=== PATIENT | male | born 1960 | race Caucasian/White ===

== ENCOUNTER 2019-05-01 15:37 | Inpatient (IN) ==
[2019-05-01] MEDS ORDERED: DILAUDID IV ONE ×2 (16:09→19:49)
--- NOTE | 2019-05-01 16:58 | Diag Imaging Result Doc PS360 ---
EXAM: CT ABDOMEN/PELVIS W/O CONTRAST INDICATION: ABD PAIN, ABD DISTENSION, HX OF CA ESOPHAGUS TECHNIQUE: This exam was performed using automated exposure control, adjustment of mA or kV according to patient size, and/or use of iterative reconstruction technique. COMPARISON: None. FINDINGS: There is a moderate-sized right pleural effusion and adjacent atelectasis and/or infiltrate. A component of infection at the right lung base is also possible. There is a pleural-based nodularity mainly on the right including nodularity along the minor fissure. There are also a few parenchymal lung nodules on the left with the largest in the left lower lobe on image six of series 4 measuring up to 9 mm. These bilateral nodules are nonspecific. Metastatic disease cannot be excluded. An esophageal stent is in place. It is partially imaged. The distal tip is in the expected position in the stomach. There is large volume ascites. There is vague omental thickening mainly at the left side of the abdomen and midline. It is suspicious for malignant omental caking. Further evaluation is limited with no IV contrast. There is a tiny hypodense focus involving the right hepatic lobe on image 32 of series 3 that is too small to characterize, possibly a tiny cyst. The gallbladder, spleen, and pancreas are grossly unremarkable as imaged with unenhanced CT. There are a couple of small nonobstructing intrarenal stones bilaterally. The urinary bladder is difficult to see with the surrounding ascites and no contrast. There is moderate gaseous distention of the ascending and transverse colon. No definite obstructive bowel pattern is identified. The small bowel is nondistended. No local bony metastatic disease is identified. IMPRESSION: 1.Large volume ascites. 2.Omental thickening that is suspicious for malignant omental caking. 3.At least moderate gaseous distention of the ascending and transverse colon. No definite obstructive pattern. 4.Moderate-sized right pleural effusion and right basilar atelectasis. Superimposed pneumonia at the right lung base is not excluded. 5.Esophageal stent in the expected position. 6.Multiple basilar lung nodules bilaterally, many of which are pleural-based on the right. Metastatic lesions cannot be excluded. 7.Other incidental/nonacute findings detailed above. Electronically signed by Timmy Hickey 05/01/2019 4:55 PM
[2019-05-01 18:07] LABS: BASO# 0.02 X1000 (0.0-0.2); BASO% 0.2 % (0.0-0.8); EOS# 0.02 X1000 (0.0-0.7); EOS% 0.2 % (0.0-10.0); HEMATOCRIT 25.7 % (42.0-52.0); HEMOGLOBIN 8.3 g/dL (14.0-18.0); IMM GRAN# 0.04 X1000 (0.0-0.04); IMM GRAN% 0.4 % (0.0-0.5); LYMPH# 2.41 X1000 (1.2-3.4); LYMPH% 24.1 % (20.5-51.1); MCH 29.2 PG (27-31); MCHC 32.3 g/dL (33-37); MCV 90.5 FL (81-99); MPV 8.8 FL (7.4-10.4); NEUT# 6.73 X1000 (1.4-6.5); NEUT% 67.1 % (42.2-75.2); PLT 328 X1000 (130-400); RBC 2.84 XMIL (4.7-6.1); RDW 14.8 % (11.5-14.5); WBC 10.02 X1000 (4.8-10.8)
[2019-05-01 18:29] LABS: AGAP 7; ALB/GLOB RATIO 0.8; ALBUMIN 2.3 g/dL (3.5-5.0); ALKALINE PHOSPHATASE 88 U/L (32-122); AMYLASE 47 U/L (20-200); BUN 19 mg/dL (8-22); CALCIUM 7.7 mg/dL (8.8-10.2); CHLORIDE 101 mmol/L (98-107); COSMO 273; CREATININE 0.4 mg/dL (0.7-1.2); ESTIMATED GFR > 60; GLUCOSE 116 mg/dL (70-104); GOT 21 U/L (10-34); GPT 14 U/L (10-44); LIPASE 14 U/L (13-60); SODIUM 135 mmol/L (136-145); TCO2 27 mmol/L (25-35); TOTAL BILIRUBIN 0.16 mg/dL (0.20-1.00); TOTAL PROTEIN 5.2 g/dL (6.3-8.3)
--- NOTE | 2019-05-01 19:22 | PROVIDER DOCUMENTATION ---
This chart was entered by Estephania Moody Scribe, acting as scribe for Hortensia Rogers MD. HPI-Abdominal Pain/GI Problem - General Stated Complaint: abdominal pain / generalized pain Time Seen by Provider: 05/01/19 15:42 Source: patient Allergies/Adverse Reactions: Patient Allergies Allergy/AdvReac Type Severity Reaction Status Date / Time No Known Allergies Allergy Unverified 04/13/19 11:34 Home Medications: Home Medication List Medication Instructions Recorded Confirmed Last Taken Type Hydrocodone/Acetaminophen 1 each PO Q4-6H PRN PRN 10/27/18 04/13/19 01/18/19 History [Hydrocodon-Acetaminophn 10-325] Morphine E.r. [Ms Contin] 30 mg PO BID 11/16/18 04/13/19 04/13/19 09:00 History Promethazine [Phenergan] 25 mg PO Q6H PRN PRN 01/04/19 04/13/19 04/11/19 History - History of Present Illness-ABD Nature of Presenting Problems: 58yowm presents to ED by EMS cc abdominal pain that radiates to back and left shoulder and chills. Pt reports he was in [facility] for 3 days recently having an espohageal stent placed salvador to espohageal cancer and they drained 3liters of fluid off his abdomen. Pt aslo reports decreased appetite, nausea and constipation. Pt is A&Ox3. Abdominal Pain Onset Location: reports: generalized abdomen Pain Radiation: reports: shoulder (left), back Quality of Pain: reports: dull, fullness, pressure, tightness Severity in ED: reports: moderate, severe Onset/Duration: reports: this morning Timing: reports: still present, constant, getting worse Activities at Onset: reports: none Exposure to sick contacts?: No Modifying Factors: worse with: eating, movement Associated Symptoms: reports: back/neck pain, constipation, fever/chills (chills), loss of appetite, weakness Last BM: this morning Dark Stools Present?: reports: none noticed Rectal Bleeding: reports: none Rectal Pain: reports: none Emesis Description: reports: none Bruising or Bleeding Gums?: No Similar Symptoms Previously?: Yes Recently seen or treated by another doctor?: Yes (was in [facility] recently) Review of Systems - Adult - REVIEW OF SYSTEMS - ADULT Constitutional: reports: see HPI, chills, fatique. denies: fever Eyes: reports: no symptoms reported Ears, Nose, Mouth & Throat: reports: no symptoms reported Cardiovascular: reports: no symptoms reported Respiratory: reports: no symptoms reported Gastrointestinal: reports: see HPI, abdominal pain (generalized), constipation, nausea. denies: diarrhea, vomiting Genitourinary: reports: no symptoms reported Musculoskeletal: reports: no symptoms reported Integumentary: reports: no symptoms reported Neurological: reports: no symptoms reported Psychiatric: reports: no symptoms reported Endocrine: reports: no symptoms reported Hematologic/Lymphatic: reports: no symptoms reported Allergic/Immunologic: reports: no symptoms reported All Other Systems: Reviewed and Negative Past History - Adult - PAST MEDICAL HISTORY-ADULT Review of Records: reports: Nursing Assessment Review, Medications Reviewed, Social history reviewed & non-contributory. Major Childhood Illnesses: reports: denies history Cardiovascular: reports: denies history Respiratory: reports: denies history Gastrointestinal: reports: denies history Obstetrical/Gynecological: reports: denies history Genitourinary: reports: denies history Musculoskeletal: reports: denies history Neurological: reports: denies history Endocrine/Immune: reports: denies history Other Conditions: reports: denies history - IMMUNIZATION STATUS Childhood Immunizations: See Nurse Assessment Flu Vaccine: See Nurse Assessment - FAMILY HISTORY Family History: reviewed, not pertinent - SOCIAL HISTORY Smoking: cigarettes, greater than 1 pack/day Provider spent 3-5 mins advising pt. on dangers of tobacco.: Discussed manners to quit use, and f/u contacts for add'l counseling. Physical Exam-General - PHYSICAL EXAM-ADULT Initial Vital Signs Reviewed: Yes - CONSTITUTIONAL General Appearance: alert, moderate distress, thin. negative: appears well, anxious, combative - EYES Eyes: PERRL/EOMI, pink conjunctivae. negative: meningismus, pale conjunctivae, photophobia - HEAD, EARS, NOSE, MOUTH & THROAT HENMT: normocephalic/atraumatic, moist mucous membranes, normal ENT inspection, TMs normal, pharynx normal. negative: angioedema, dental decay, hearing deficit - NECK Neck: non-tender, full range of motion, supple, normal inspection. negative: Brudzinski's sign, carotid bruit, C-spine tenderness - RESPIRATORY Respiratory: chest non-tender, lungs clear, normal breath sounds, no pleuratic chest pain, no respiratory distress, no accessory muscle use. negative: crackles, rales, rhonchi, stridor, wheezing - CARDIOVASCULAR Cardiovascular: normal peripheral pulses, regular rate, rhythm, no edema, no gallop, no JVD, no murmur. negative: bradycardia, tachycardia - GASTROINTESTINAL (ABDOMEN) Abdominal Exam: abnormal bowel sounds, distended, guarding, tenderness (even with light tapping). negative: normal bowel sounds, non tender, soft, rigid, rebound - LYMPHATIC Lymphatic: no adenopathy. negative: enlargement, striations, streaking - MUSCULOSKELETAL Back Exam: normal inspection, no CVA tenderness, no vertebral tenderness. negative: swelling Extremity: normal range of motion, non-tender, normal gait, normal inspection, no pedal edema, no calf tenderness, normal capillary refill, pelvis stable. negative: deformity, erythema - SKIN Integumentary: normal color, normal turgor, warm/dry. negative: cyanosis, diaphoresis, erythema, jaundice - NEUROLOGIC Neurologic: filler shredder II-XII nml as tested, grossly normal, no motor/sensory deficits. negative: facial droop, focal weakness - PSYCHIATRIC Psych/Mental Status: normal mood/affect, normal thought content, normal thought process, oriented x 3. negative: disoriented x 3, anxious, disheveled, depressed affect Progress - PLAN OF CARE/RESULTS Result Diagrams: 05/01/19 17:37 05/01/19 17:37 - CT/MRI 1 CT Study: Abdomen Impression: Abnormal ([facility] - [address] [facility] [address], [place] [address] [facility] - [address] [place] [address] Department of Imaging Patient: JOSE ROBERTO MCKEON Date: 05/01/19#: [id number] : 1960DM Status: PRE ERAcct#: [id number] A ge/Sex: 58/MRoom/Bed: Loc: ED Ordering Physician: Hortensia Rogers MD Family Physician: None,PCP Reason for Procedure: ABD PAIN, ABD DISTENSION, HX OF CA ESOPHAGUS Signed EXAM: CT ABDOMEN/PELVIS W/O CONTRAST INDICATION: ABD PAIN, ABD DISTENSION, HX OF CA ESOPHAGUS TECHNIQUE: This exam was performed using automated exposure control, adjustment of mA or kV according to patient size, and/or use of iterative reconstruction technique. COMPARISON: None. FINDINGS: There is a moderate- sized right pleural effusion and adjacent atelectasis and/or infiltrate. A component of infection at the right lung base is also possible. There is a pleural-based nodularity mainly on the right including nodularity along the minor fissure. There are also a few parenchymal lung nodules on the left with the largest in the left lower lobe on image six of series 4 measuring up to 9 mm. These bilateral nodules are nonspecific. Metastatic disease cannot be excluded. An esophageal stent is in place. It is partially imaged. The distal tip is in the expected position in the stomach. There is large volume ascites. There is vague omental thickening mainly at the left side of the abdomen and midline. It is suspicious for malignant omental caking. Further evaluation is limited with no IV contrast. There is a tiny hypodense focus involving the right hepatic lobe on image 32 of series 3 that is too small to characterize, possibly a tiny cyst. The gallbladder, spleen, and pancreas are grossly unremarkable as imaged with unenhanced CT. There are a couple of small nonobstructing intrarenal stones bilaterally. The urinary bladder is difficult to see with the surrounding ascites and no contrast. There is moderate gaseous distention of the ascending and transverse colon. No definite obstructive bowel pattern is identified. The small bowel is nondistended. No local bony metastatic disease is identified. IMPRESSION: 1.Large volume ascites. 2.Omental thickening that is suspicious for malignant omental caking. 3.At least moderate gaseous distention of the ascending and transverse colon. No definite obs tructive pattern. 4.Moderate-sized right pleural effusion and right basilar atelectasis. Superimposed pneumonia at the right lung base is not excluded. 5.Esophageal stent in the expected position. 6.Multiple basilar lung nodules bilaterally, many of which are pleural-based on the right. Metastatic lesions cannot be excluded. 7.Other incidental/nonacute findings detailed above. Electronically signed by Timmy Hickey 05/01/2019 4:55 PM 05/01/19 1655 Interpreting Physician: Timmy Hickey MD Dictated Date/Time: 05/01/19 1644 cc: Hortensia Rogers MD; None,PCP) - CONSULTS/PCP/HOSPITALIST Notification #1 *Consult/PCP/Hospitalist*: DR SARMIENTO Time Discussed: 19:00 Consult Disposition: Admit (ADMIT TO HOSPITALIST) #2 Consult: DR MCGRATH Time Discussed: 19:21 Consult Disposition: Admit Departure - Departure Date of Disposition Decision: 05/01/19 Time of Disposition Decision: 18:57 DIAGNOSIS: Abdominal pain, Ascites Disposition: ADMITTED INPATIENT 09 Certified Medical Emergency: Emergent Condition: Stable Additional Freetext Instructions: ED Follow Up Instructions: You have been treated by a care provider in the Emergency Department. These instructions are being provided to you so you can have an understanding of how to care for yourself upon discharge. Upon discharge from the Emergency Department, you are responsible for making arrangements for follow-up care by a physician of your choice. Take all prescribed medications as directed. Return to the Emergency Department immediately for any new or worsening symptoms. You may call the Physician Referral phone number at [phone] to obtain a list of Physicians who are taking new patients. Referrals and Follow-Ups: None,PCP [Primary Care Provider] - Discharge Education: Tobacco Use Disorder - Critical Care Note This patient required my direct & personal management of CC.: No Attestation - Physician/ MARLEY Attestation Patient care was provided by Advanced Practice Provider:: No The physician spent face to face time with patient:: Yes Advanced Practice Provider documentation review:: Supervising physician onsite and consulted in the evaluation and care of this patient. The physician did have a face to face encounter with the patient. This chart was documented by the indicated scribe, (Estephania Moody Scribe) and accurately reflects the services I performed and decisions made by me, Hortensia Rogers MD, as attested by the provider's signature.
[2019-05-01 19:23] LABS: URINE SOURCE CLEAN CATCH
[2019-05-01 19:25] LABS: BILIRUBIN URINE NEGATIVE (NEGATIVE); BLOOD URINE NEGATIVE (NEGATIVE); COLOR YELLOW; GLUCOSE URINE NEGATIVE (NEGATIVE); KETONE URINE NEGATIVE (NEGATIVE); LEUKOCYTES URINE NEGATIVE (NEGATIVE); NITRITE URINE NEGATIVE (NEGATIVE); PROTEIN URINE TRACE mg/dL (NEGATIVE); SP GRAVITY URINE 1.028; TURBIDITY URINE CLEAR (CLEAR); UR EPITHELIAL CELLS <10 /HPF (<10); URINE BACTERIA NEGATIVE /HPF; URINE RBC <10 /HPF (<10); URINE WBC <10 /HPF (<10); UROBILINOGEN URINE 3 mg/dL (NORMAL)
--- NOTE | 2019-05-01 21:18 | HISTORY AND PHYSICAL ---
PRIMARY CARE PHYSICIAN: Dr. Lechuga. REASON FOR ADMISSION: A 3-day history of worsening abdominal swelling and pain. 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 He says that about 2 to 3 weeks ago he had an esophageal stent placed by one of our GI physicians done primarily to dysphagia secondary to progressive esophageal disease. He said following the stent, he was able to the eat semi-solid foods with no problems. However, about a week after the procedure, he started noticing increasing abdominal distention with upper abdominal pain. He said the pain is constant and feels like he is bloated and stretched out. He sought care at [facility]. He spent 3 days there. They did a paracentesis for him and tried to induce defecation without much success and then sent him home. I advised him to return to the nearest ER if his pain worsens or swelling recurred. He did acquire cyanosis and progressive worsening, accelerated abdominal swelling with nausea and epigastric pain in the upper half of his abdomen. He also complains of easy satiety, occasional chills. No vomiting. He says he has noticed shortness of breath a week prior to the onset of his abdominal swelling and this has gotten progressively worse. No chest pain. No orthopnea or PND. No additional cardiorespiratory symptoms. REVIEW OF SYSTEMS: Notable for constipation. No genitourinary complaints. No additional cardiorespiratory complaints including cough and wheezes. Says his appetite has been diminishing over the last week. Believes he has lost some weight as a result of that. He also has a chronic longstanding lower extremity swelling which he says has been there for about a month about 3 to 4 weeks by the time he had a stent placed. Otherwise, 12 system review was done. Positive findings per HPI. ALLERGIES: None. MEDICATIONS: Have been reconciled. SURGICAL HISTORY: She has had wrist surgery, the aforementioned stent, kidney stone related surgery. FAMILY HISTORY: Notable for diabetes and lung cancer in first-degree relatives. SOCIAL HISTORY: He smokes a half of pack per day. Lives alone. No alcohol or illicit drug use. LAB WORK: He had a CT scan of the abdomen without contrast. This showed large volume ascites, omental thickening suspicion of malignant omental caking, gaseous distention of the ascending and transverse colon, moderate right-sided right pleural effusion with possible right basilar atelectasis. Cannot rule out pneumonia and multiple basilar lung nodules, many of which are pleural-based on the right. Cannot rule out metastatic lesions. White count 10,000, H H 8 and 25, platelets 328,000. Normal differential. Sodium is 135, BUN 19, creatinine 0.4, glucose 116, proBNP 425, calcium is 7.7, albumin 2.3. Amylase and lipase normal. Urinalysis is unremarkable. PHYSICAL EXAMINATION: VITAL SIGNS: Blood pressure 91/60, heart rate 79, respirations 15, temperature is 97.9. He is 95 % on room air. He is a chronically ill, man who is alert and oriented to person, place, and time with mild distress from pain in his abdomen. His affect is anxious. Somewhat depressed mood. HEENT: Head is normocephalic, atraumatic. Eyes, PADMINI, EOMI. He is anicteric, not pale. ENT oral exam is grossly normal. No central cyanosis. NECK: Supple. No JVD. No organomegaly. He has decreased skin turgor noted. CHEST: Decreased entry in the bases of both lung hernandez. CARDIOVASCULAR: First and second hear sounds are heard. No gallops, murmurs, rubs. Rhythm is regular. ABDOMEN: Possible right upper quadrant dullness to percussion but tenderness in mainly the epigastrium left upper quadrant area. No rebound or guarding. Also tenderness in the right upper quadrant area. Bowel sounds are barely heard. RECTAL: Deferred. EXTREMITIES: Patient has 1+ pitting edema. Decreased pulse volume. Distally in all extremities. No clubbing or peripheral cyanosis. NEUROLOGIC: No gross focal deficits. No myoclonus noted. SKIN: Intact. No breakdown, lesions or erythema. MUSCULOSKELETAL: Exam is grossly normal. Other than diffuse sarcopenia. ASSESSMENT: 1. Malignant ascites presumably from metastatic disease of the esophagus. Cannot rule out ascites secondary to cirrhotic lesion. 2. Cancer of the esophagus. 3. Anemia secondary to neoplasm and or malnutrition. 4. Hypoxia possibly secondary to chronic obstructive pulmonary disease with compromised, diminished lung volume from ascites and right pleural effusion. 5. Hepatitis B and C. 6. Moderate malnutrition. Moderate protein-calorie malnutrition. PLAN: 1. For now patient's primary concern now is his pain. We will address this for now, and start the patient on suppositories to see if he can induce some degree of defecation and decreased gaseous distention. 2. Regarding ascites, I will defer to Dr. Velazquez if she wants to proceed with therapeutic paracentesis; although, we all know that this will probably reaccumulate. Also, thoracentesis may also need to be considered to help improve the patient's respiratory status being that he is hypoxic. Patient will need to be evaluated for home O2. In the interim, the patient will be given breathing treatments. The role for diuretics is highly questionable in this patient. I doubt it may do more harm than good. We will also start the patient on Movantik for few days. To induce defecation as this is part of the reason why the patient has a presumed ileus is because of his opioid use. cc: MD Jarrett Perez MD MTDD
[2019-05-01] MEDS ORDERED: DULCOLAX PR ONE (21:35)
[2019-05-01] MEDS ORDERED: TYLENOL PO PRN (21:35)
[2019-05-01] MEDS ORDERED: SODIUM CHLORIDE 0.9% INJ SCH (21:35)
[2019-05-01] MEDS ORDERED: LOVENOX SUBQ SCH (21:35)
[2019-05-01] MEDS ORDERED: NICODERM PATCH TD ONE (21:35)
[2019-05-01] MEDS ORDERED: COMPAZINE IV PRN (21:35)
[2019-05-01] MEDS: MOVANTIK PO SCH (22:34)
[2019-05-01] MEDS: DILAUDID IV PRN (22:35)
[2019-05-01] MEDS: PEPCID IV SCH (22:35)
[2019-05-01] MEDS: MYLICON DROPS PO SCH (23:24)
[2019-05-01] MEDS: DUONEB (A & A) INH SCH (23:58)
[2019-05-02] MEDS: DILAUDID IV PRN ×7 (02:00→21:49)
[2019-05-02] MEDS: DUONEB (A & A) INH SCH ×4 (05:32→22:25)
[2019-05-02 06:32] LABS: HEMATOCRIT 27.3 % (42.0-52.0); HEMOGLOBIN 8.9 g/dL (14.0-18.0); WBC 8.54 X1000 (4.8-10.8)
[2019-05-02 06:33] LABS: BASO# 0.02 X1000 (0.0-0.2); BASO% 0.2 % (0.0-0.8); IMM GRAN# 0.03 X1000 (0.0-0.04); IMM GRAN% 0.4 % (0.0-0.5); LYMPH% 19.9 % (20.5-51.1); MCH 29.7 PG (27-31); MCHC 32.6 g/dL (33-37); MONO# 0.69 X1000 (0.11-0.59); MONO% 8.1 % (1.7-9.3); MPV 8.7 FL (7.4-10.4); NEUT% 71.4 % (42.2-75.2); PLT 342 X1000 (130-400); RDW 14.9 % (11.5-14.5)
[2019-05-02 07:11] LABS: AGAP 8; CHLORIDE 101 mmol/L (98-107); GLUCOSE 108 mg/dL (70-104); SODIUM 137 mmol/L (136-145); TCO2 28 mmol/L (25-35)
[2019-05-02 07:12] LABS: ALB/GLOB RATIO 0.6; ALBUMIN 2.2 g/dL (3.5-5.0); ALKALINE PHOSPHATASE 82 U/L (32-122); BUN 20 mg/dL (8-22); CALCIUM 8.1 mg/dL (8.8-10.2); COSMO 277; CREATININE 0.4 mg/dL (0.7-1.2); ESTIMATED GFR > 60; GOT 22 U/L (10-34); GPT 14 U/L (10-44); TOTAL BILIRUBIN 0.23 mg/dL (0.20-1.00); TOTAL PROTEIN 5.6 g/dL (6.3-8.3)
[2019-05-02 07:13] LABS: POTASSIUM 5.4 mmol/L (3.5-5.1)
[2019-05-02] MEDS: MYLICON DROPS PO SCH ×2 (08:16→21:52)
[2019-05-02] MEDS: PEPCID IV SCH (08:34)
[2019-05-02] MEDS: MOVANTIK PO SCH (14:45)
--- NOTE | 2019-05-02 15:55 | PROGRESS NOTE ---
DATE: 05/02/2019 INTERVAL HISTORY: Mr. Estrada was admitted overnight for worsening abdominal pain and swelling of about 3 days duration. Apparently, he was in [facility] for the same complaints and he had underwent a paracentesis. He was treated for constipation, was discharged home. However his pain did not get better and so he came to this hospital. He tells me that he was diagnosed with esophageal cancer in 2018 and was started on chemotherapy in early 2018 which he has completed 11 cycles off. However the chemotherapy did not reduce the size of the esophageal cancer and so he eventually underwent esophageal stent placement in March 2019. After that he was able to eat by mouth. However, he did not receive the last cycle of his chemotherapy because he was too weak. Currently his only complaints are abdominal pain and constipation. He has also been coughing recently, which started since last 3 days and he has been bringing up whitish- yellowish sputum. He wants me to call his daughter and informed her about his clinical course. Hematology oncology evaluation is pending currently. VITALS: Temperature 97.3 degrees, pulse 84, respiratory rate 18, blood pressure 85/59. He is saturating 100% on room air. PHYSICAL EXAMINATION: He is not in any acute distress.HEENT: Oral cavity is moist with some oral candidiasis. He appears cachectic. Lungs: Decreased air entry with inspiratory crackles on right infrascapular region. Cardiovascular: S1, S2 normal. No murmur or gallop. Abdomen: Distended soft, tympanic to percussion in midline. He does have dullness in the flanks, no bowel sounds. No undue tenderness. Soft. Extremities: Mild bilateral ankle edema. Neurologic: He is alert oriented x3. Nonfocal examination. LABS: Suggestive of normocytic anemia, normal platelet count, hyperkalemia. He does have normal kidney function, though. Microbiology noted. IMAGING: Abdomen and pelvis CT has suggested large volume ascites, omental thickening suspicious for malignant omental caking. There is moderate gaseous distention of colon without any obstructive pattern, right-sided pleural effusion and multiple lung nodules. ASSESSMENT AND PLAN: 1. Acute hypoxic respiratory failure due to suspected right-sided lower lobe pneumonia and right pleural effusion. Start patient on intravenous levofloxacin. Follow up sputum culture with Gram stain, urine antigen. 2. Large volume ascites. He underwent recently paracentesis at [facility]. I am awaiting reports which could be malignant ascites considering on my examination he does have some nodularity in midline and there is a CT scan finding of omental thickening. 3. Opioid induced constipation. Start patient on lactulose, bisacodyl and Fleet enema. Continue Movantik. 4. Metastatic esophageal cancer pending hematology consultation to get the details about his cancer. However he does have right-sided pleural based lung nodularity and suspected omental thickening. Continue pain management with morphine and as needed intravenous hydromorphone. DISPOSITION: I will continue to monitor patient inside the hospital for his hypoxia as well as marginal blood pressure and for pain management. I tried call calling patient's daughter and have left a voice message for her. cc: Stuart Flores MD MTDD
[2019-05-02] MEDS: MYCOSTATIN SUSP PO SCH ×2 (16:55→20:13)
[2019-05-02] MEDS: LEVAQUIN 750 MG/D5W 750 MG/150 ML IVPB IV SCH (16:55)
[2019-05-02] MEDS: LACTULOSE PO SCH ×2 (16:55→20:13)
[2019-05-02] MEDS: MS CONTIN PO SCH (20:12)
[2019-05-02] MEDS: LOVENOX SUBQ SCH (20:13)
[2019-05-02] MEDS ORDERED: FLEET MINERAL OIL ENEMA PR SCH (21:00)
[2019-05-03] MEDS: DILAUDID IV PRN ×7 (02:20→23:14)
[2019-05-03] MEDS: DUONEB (A & A) INH SCH ×4 (05:14→22:20)
[2019-05-03] MEDS: MS CONTIN PO SCH ×2 (08:48→22:05)
[2019-05-03] MEDS: MYLICON DROPS PO SCH ×2 (08:48→23:19)
[2019-05-03] MEDS: MOVANTIK PO SCH (08:48)
[2019-05-03] MEDS: LACTULOSE PO SCH ×2 (08:48→22:07)
[2019-05-03] MEDS: MYCOSTATIN SUSP PO SCH ×4 (08:48→22:07)
[2019-05-03] MEDS ORDERED: DULCOLAX PR SCH (09:00)
--- NOTE | 2019-05-03 10:42 | HEMO/ONC CONSULTATION ---
DATE: 05/03/2019 ADMITTING PHYSICIAN: Dr. Garibay. REQUESTING PHYSICIAN: Dr. Garibay. We appreciate this consult. CHIEF COMPLAINT: Esophageal cancer. HISTORY OF PRESENT ILLNESS: Mr. Jeovanny Estrada is a pleasant 58-year-old male well known to Dr. 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 The patient is currently on 5-FU, leucovorin and oxaliplatin. His last treatment was on March 20, 2019. He has had a delay in treatment secondary to profound malnutrition and an inability to swallow secondary to esophageal mass. The patient underwent wall stent placement and has had an improvement with dysphagia with ability to eat solid food at this time. However, the patient began to experience abdominal pain with increasing abdominal girth. The patient presented to [facility] secondary to abdominal pain. He was treated with pain medication and sent home with instructions to follow up with Dr. Lechuga. However, abdominal girth increased and the patient ultimately presented to [facility]. He was hospitalized for 3 days there where he underwent paracentesis for 3800 mL of fluid. The patient had improvement in pain and was discharged home with instructions to follow up in clinic. The patient reports that he began to experience pain again and presented to [facility] where he was admitted secondary to persistent abdominal pain and profound constipation. We are consulted as the patient is well known to us. REVIEW OF SYSTEMS: A 14 point review of systems was obtained and is negative except for as mentioned in the HPI. PAST MEDICAL HISTORY: 1. Metastatic esophageal cancer to the adrenal gland and with diffuse lymph node involvement. 2. Hepatitis B and C. 3. COPD. 4. Anemia of chemotherapy. SURGICAL HISTORY: 1. Wrist surgery. 2. Esophageal wall stent placement. 3. Kidney stone extraction. FAMILY HISTORY: Significant for lung cancer in the patient's father. SOCIAL HISTORY: The patient smokes 1/2 pack cigarettes daily. He does not use alcohol or illicit drugs. MEDICATIONS ON ADMISSION: 1. Emla cream. 2. Promethazine. 3. MS Contin. 4. Winn. ALLERGIES: The patient has no known drug allergies. PHYSICAL EXAMINATION: GENERAL: Mr. Estrada is a pleasant 58-year-old male lying supine in bed and in no immediate distress. VITAL SIGNS: Temp 97.3 degrees, blood pressure 105/73, heart rate 82, respirations 17, O2 saturation is 100% on room air. HEENT: Normocephalic, atraumatic. The patient does have temporal wasting. Mucous membranes are pale and somewhat dry. Sclerae anicteric. Extraocular movements intact. NECK: Supple. LUNGS: Clear to auscultation bilaterally. Chest expansion is equal bilaterally. CVS: S1, S2 heard without murmurs, rubs or gallops. ABDOMEN: Nondistended, tender to palpation throughout. Patient does have positive ascites. Bowel sounds are decreased throughout. No rebound or guarding is noted. EXTREMITIES: Without clubbing, cyanosis. He does have trace bilateral lower extremity edema. DERMATOLOGIC: No rashes, bruises or lesions. NEUROLOGICAL: The patient is awake, alert and oriented x3. He has no focal deficit. LABORATORY DATA: Hemoglobin 8.9, hematocrit 27.3, white blood cell count 8.54, platelets 342,000. Sodium 137, potassium 5.4, chloride 101, CO2 28, BUN 20, creatinine 0.4 and glucose is 108. Calcium is 8.1. LFTs are within normal limits. ASSESSMENT AND PLAN: 1. Esophageal cancer with metastasis to the adrenal gland and with diffuse lymph node involvement. Patient is currently on 5-FU, leucovorin and oxaliplatin with last treatment being on 03/20/2019. The patient has had a delay in treatment secondary to profound malnutrition with esophageal mass. The patient underwent wall stent placement and has had an improvement in appetite and ability to swallow. We will proceed with treatment when patient's acute illness improves. 2. Questionable malignant ascites. The patient underwent paracentesis at [facility] for 3800 mL of fluid. Culture and cytology are pending. 3. Anemia. Hemoglobin is currently 8.9. We will continue to monitor and provide packed red blood cells if hemoglobin decreases to 8.0 or less. 4. Hypoxia with COPD. Stable at this time. 5. Hepatitis B and C, known. 6. Profound malnutrition. The patient has been seen by the central sterilization technician. He is currently tolerating p.o. intake status post wall stent placement to his esophagus. 7. We will follow along with you and make further recommendations pending outcomes. The above reflects the history, exam, assessment and plan of Dr. Velazquez. Dictated by SUMMER Torrez for Marquita Velazquez MD cc: SUMMER Torrez MD [facility]
[2019-05-03] MEDS ORDERED: TYLENOL PO PRN (14:33)
--- NOTE | 2019-05-03 15:00 | PROGRESS NOTE ---
DATE: 05/03/2019 INTERVAL HISTORY: The patient states he had a big bowel movement yesterday night. He refused a suppository and he wants me to give him only enemas. He is using intravenous hydromorphone pretty much around the clock. The documents from [facility] are still pending. We discussed about changing his IV to p.o. Dilaudid and he is concerned about that. He denies any chest pain or shortness of breath. He wants me to order medication to help him sleep at nighttime. VITAL SIGNS: Afebrile, temperature 97.9 degrees, pulse 90, respiratory 17, blood pressure 101/71, saturating 100% room air. PHYSICAL EXAMINATION: General: Cachectic, not in any acute distress. Oral cavity is moist. Lungs: Air entry bilaterally equal. No wheeze, rhonchi. He does have crackles in especially right infrascapular region. Cardiovascular: S1, S2 normal. No murmur or gallop. Abdomen: Distended, soft, tympanic to percussion in the midline and mild dullness bilateral flank. Active bowel sounds. No undue tenderness. Extremities: His ankle edema has improved. Neurologic: He is alert and oriented x3 and his examination otherwise is nonfocal. LABORATORY DATA: Suggestive of normocytic anemia, normal platelet count. Potassium of 5.4. Input and output suggests he did have 1 bowel movement. The patient states it was pretty big and he was surprised to see that. ASSESSMENT AND PLAN: 1. Acute hypoxic respiratory failure due to suspected right lower lobe pneumonia and right pleural effusion. Continue intravenous levofloxacin. He has not been making sputum. Follow up urine streptococcal and Legionella antigen. He is feeling subjectively better and he is at room air. 2. Large volume ascites with recent paracentesis at the [facility]. I again reminded manager intensive care unit about faxing those documents to see the fluid analysis to rule out or to confirm malignant ascites. His CT scan current finding does have omental thickening suspicious of metastatic lesions. 3. Opioid-induced constipation. Continue lactulose and Fleet enema. 4. Metastatic esophageal cancer diagnosed in late 2017 with adrenal metastasis and diffuse lymph node involvement. He is currently on 5 fluorouracil, leucovorin, and oxaliplatin with the last therapy on 03/20/2019. He is also status post esophageal stent because of tumor blocking the esophagus in March 2019. Continue the patient on mechanical soft diet. Change intravenous hydromorphone to p.o. hydromorphone starting midnight and continue patient's home morphine. 5. Disposition. The patient's pain is his primary concern and with improvement in constipation, it has decreased as well. However, he is still needing IV hydromorphone. If the patient's pain is reasonably controlled on oral hydromorphone and he keeps on having regular bowel movement, my plan is to discharge him home tomorrow on oral pain medication regimen and oral levofloxacin. Plan of care discussed with him. Yesterday I had called the patient's daughter and had left her a voice message. cc: Stuart Flores MD
[2019-05-03] MEDS: FLEET MINERAL OIL ENEMA PR SCH (15:34)
[2019-05-03] MEDS: LEVAQUIN 750 MG/D5W 750 MG/150 ML IVPB IV SCH (15:34)
[2019-05-03] MEDS: MELATONIN PO SCH (22:07)
[2019-05-03] MEDS ORDERED: DILAUDID PO PRN (23:59)
[2019-05-04] MEDS: LOVENOX SUBQ SCH ×2 (02:13→21:25)
[2019-05-04] MEDS: FLEET MINERAL OIL ENEMA PR SCH ×3 (02:13→21:32)
[2019-05-04] MEDS: DUONEB (A & A) INH SCH ×4 (05:08→21:44)
[2019-05-04 07:41] LABS: AGAP 8; BUN 14 mg/dL (8-22); CALCIUM 8.3 mg/dL (8.8-10.2); CHLORIDE 102 mmol/L (98-107); COSMO 277; CREATININE 0.4 mg/dL (0.7-1.2); ESTIMATED GFR > 60; GLUCOSE 106 mg/dL (70-104); POTASSIUM 3.9 mmol/L (3.5-5.1); SODIUM 138 mmol/L (136-145); TCO2 28 mmol/L (25-35)
[2019-05-04] MEDS: MYLICON DROPS PO SCH ×2 (08:37→21:31)
[2019-05-04] MEDS: LACTULOSE PO SCH ×2 (08:38→21:31)
[2019-05-04] MEDS: MYCOSTATIN SUSP PO SCH ×4 (08:38→21:31)
[2019-05-04] MEDS: MS CONTIN PO SCH ×2 (08:38→23:00)
--- NOTE | 2019-05-04 11:17 | Diag Imaging Result Doc PS360 ---
EXAM: ABDOMEN FLAT/UPRIGHT 05/04/2019 HISTORY: Abdominal pain TECHNIQUE: Flat and upright abdomen COMMENT: There is gaseous dilatation of much of the colon including the ascending and transverse as well as considerable gas in the rectum. The small bowel and stomach are not distended. There is an apparent stent in the distal esophagus. There are no previous studies available for comparison. Some fecal debris is present particularly in the ascending colon. IMPRESSION: Colonic ileus versus partial distal colonic obstruction. Electronically signed by Edwin Cuevas 05/04/2019 11:14 AM
[2019-05-04] MEDS: DILAUDID IV PRN ×4 (11:20→21:31)
--- NOTE | 2019-05-04 11:32 | PROGRESS NOTE ---
DATE: 05/04/2019 SUBJECTIVE: This patient is lying in bed. He is complaining of severe abdominal pain. His abdomen is distended, tense, positive bowel sounds. As per the patient, he is not having a bowel movement for the past couple days, but I believe he had 1 large bowel movement a couple days ago. He has been getting enemas and also lactulose. I will continue with same management. He has metastatic esophageal cancer and his current CT scan does have an omental thickening suspicious of metastatic lesions. I will put him back on IV pain medications, and I will get an abdominal x- ray. OBJECTIVE: Vital Signs: Temperature 97.8 degrees, pulse 103, respiratory rate 16, blood pressure 104/73, oxygen saturation 97% on room air. General: A 58-year-old male, cachectic with mild acute distress due to abdominal pain. HEENT: Head normocephalic, no trauma. PERRLA. Neck: Supple. No JVD. No masses. Central trachea. Chest: Clear to auscultation. No wheezing. No rales. Probably some crepitus at the bases. Abdomen: Soft, distended, tympanic to percussion. Bowel sounds present. He has discomfort to palpation which is generalized/pain, no signs of peritoneal irritation. Extremities: No edema, no clubbing, no cyanosis. Neurological examination: The patient is alert. He is oriented. He moves all 4 extremities. LABORATORY: Sodium 138, potassium 3.9, chloride 102, bicarbonate 28. BUN 14, creatinine 0.4, glucose 106, calcium 8.3. ASSESSMENT AND PLAN: 1. Acute hypoxic respiratory failure due to right lower lobe pneumonia and right pleural effusion. Continue with intravenous levofloxacin. His cough is dry. I will continue with the same management. He is not having problem breathing. 2. Large volume ascites with recent paracentesis at [facility]. This has been followed by Hematology/Oncology Department. Computed tomography of the abdomen showed omental thickening suspicious for metastasis. 3. Opioid-induced constipation. Continue with lactulose and Fleet enema. 4. Metastatic esophageal cancer diagnosed in late 2018 with adrenal metastasis and diffusely noting involvement, followed by Hematology/Oncology Department. Will continue trying to control his pain. 5. Disposition: We will continue with same management for now. I just put this patient on intravenous Dilaudid per patient request. He is complaining of abdominal pain. I will get also an x-ray. cc: Lobito Pineda MD
[2019-05-04] MEDS ORDERED: DULCOLAX PR PRN (14:30)
--- NOTE | 2019-05-04 14:54 | GENERAL SURGERY CONSULTATION ---
DATE: 05/04/2019 REQUESTING PHYSICIAN: The hospitalist. REASON FOR CONSULTATION: Abdominal distention and ileus versus obstruction. HISTORY OF PRESENT ILLNESS: A 58-year-old gentleman with a complicated past medical history, who has stage IV esophageal cancer status post stent placement for palliation. He has been getting active chemotherapy. He had previously been at [facility] for abdominal pain and had paracentesis. There was some concern it might be malignant. He presents now with worsening abdominal pain and distention. He also has had what looks like some degree of blockage of his colon based off a CAT scan and abdominal film. He has been getting enemas. I was asked to weigh an opinion. He says he feels a little bit better. He passed a little bit of gas after his enema, but still having some abdominal pain, but he does have chronic abdominal pain. PAST MEDICAL HISTORY: Stage IV esophageal cancer, hepatitis C, COPD, and possible hepatitis B. PAST SURGICAL HISTORY: Includes wrist surgery, stent, kidney stone removal. ALLERGIES: None. CURRENT MEDICATIONS: MAR reviewed. FAMILY HISTORY: Positive for diabetes and lung cancer. SOCIAL: History of smoking. REVIEW OF SYSTEMS: A full 10 point review of systems obtained and negative unless otherwise specified in HPI. PHYSICAL EXAMINATION: Vital Signs: Patient is currently afebrile. He does have a heart rate in the 120s. Blood pressure is 100/84. O2 saturation 99%. General exam: No acute distress. Alert, interactive, male, looks chronically ill. HEENT: Normocephalic, atraumatic. Pupils equal, round, reactive to light. Mucous membranes moist. Oropharynx benign. Neck: Supple. Trachea midline. Cardiovascular: Some tachycardia. Lungs: Grossly clear. Abdomen: Protuberant. No real peritoneal signs. Extremities: Moves all extremities. Neurologic: Grossly intact. Skin: No signs of jaundice. Vascular: All extremities perfused. LABORATORY: Reviewed. His electrolytes appear to be normal. Calcium seemed a little bit low at 8.3. IMAGING: Reviewed and noted above. ASSESSMENT AND PLAN: A 58-year-old with stage IV esophageal cancer, now with colonic ileus versus obstruction. 1. Colonic ileus versus obstruction. At this time, could not find the exact etiology; could be multifactorial. Regardless, I would recommend continue the Fleet enema, give him Dulcolax suppository to try to stimulate him. I have already discussed it with Dr. Cole, who is his normal Gastroenterology doctor. He may benefit from a decompressive colonoscopy given the fact that his transverse colon looks to be approaching 9 cm in size. His cecum does not appear to be enlarged. I do not think pending risk for perforation, but would like to try to decompress him. I think he would be high risk for any kind of abdominal approach for this. We will monitor and keep an eye on him. 2. Multiple medical comorbidities currently being managed by the Hospitalist Service. I appreciate the consult. cc: Josh Oh MD
[2019-05-04] MEDS: LEVAQUIN 750 MG/D5W 750 MG/150 ML IVPB IV SCH (15:04)
[2019-05-04] MEDS: MELATONIN PO SCH (21:31)
[2019-05-05] MEDS: DILAUDID IV PRN ×8 (00:47→23:46)
[2019-05-05] MEDS: DUONEB (A & A) INH SCH ×4 (03:37→22:50)
--- NOTE | 2019-05-05 05:40 | GENERAL SURGERY PROGRESS NOTE ---
DATE: 05/05/2019 SUBJECTIVE: Patient seems to be doing okay, passed a little bit of gas but has not had a bowel movement. He is feeling okay. OBJECTIVE: Vital Signs: Patient is currently afebrile. His vital signs are stable. General: No acute distress. Cardiovascular: Regular rate and rhythm. Lungs: Grossly clear. Abdomen: Protuberant but still soft. No peritoneal signs. ASSESSMENT AND PLAN: A 58-year-old gentleman with stage IV esophageal cancer with colonic ileus versus obstruction. Colonic ileus versus obstruction. At this time, continue current treatment, try to stimulate him from below. I have consulted Dr. Cole with Gastroenterology, maybe he can do a colonoscopy on him today. We will see what the results are. From a surgical point of view, would just continue to monitor him. cc: Josh Oh MD
[2019-05-05 07:19] LABS: BASO# 0.02 X1000 (0.0-0.2); BASO% 0.2 % (0.0-0.8); EOS# 0.02 X1000 (0.0-0.7); EOS% 0.2 % (0.0-10.0); HEMATOCRIT 24.9 % (42.0-52.0); IMM GRAN# 0.03 X1000 (0.0-0.04); IMM GRAN% 0.3 % (0.0-0.5); LYMPH# 2.48 X1000 (1.2-3.4); LYMPH% 24.7 % (20.5-51.1); MCH 30.3 PG (27-31); MCHC 32.1 g/dL (33-37); MCV 94.3 FL (81-99); NEUT# 6.18 X1000 (1.4-6.5); NEUT% 61.6 % (42.2-75.2); PLT 307 X1000 (130-400); RBC 2.64 XMIL (4.7-6.1); RDW 15.8 % (11.5-14.5); WBC 10.03 X1000 (4.8-10.8)
--- NOTE | 2019-05-05 07:23 | Diag Imaging Result Doc PS360 ---
EXAM: ABDOMEN FLAT/UPRIGHT 05/05/2019 HISTORY: pain TECHNIQUE: Flat and upright abdomen portable at 0610 COMMENT: There is still a considerable amount of gas and stool in the ascending and transverse colon. There is relatively less gas and distention of the descending colon although there is some gas and stool in the rectum. The stomach and small bowel remain nondistended. The CT examination of 05/01/2019 demonstrated some dilatation of the colon as well which included to the area of the splenic flexure and descending colon. There was a gradual decrease in caliber distally with areas of potential stricture formation in the sigmoid colon. Considerable ascites was present on the CT examination. There is a stent in the distal esophagus. There is pleural fluid and/or thickening on the right. There is bibasilar atelectasis versus pneumonia. IMPRESSION: Colonic ileus versus stricture in the sigmoid colon. Ascites. Bibasilar atelectasis versus pneumonia. Right pleural fluid collection versus pleural thickening. Electronically signed by Edwin Cuevas 05/05/2019 7:20 AM
[2019-05-05 07:40] LABS: AGAP 10; ALB/GLOB RATIO 0.6; ALKALINE PHOSPHATASE 81 U/L (32-122); BUN 14 mg/dL (8-22); CALCIUM 8.1 mg/dL (8.8-10.2); CHLORIDE 102 mmol/L (98-107); COSMO 274; CREATININE 0.5 mg/dL (0.7-1.2); ESTIMATED GFR > 60; GLUCOSE 124 mg/dL (70-104); GOT 19 U/L (10-34); GPT 11 U/L (10-44); POTASSIUM 4.5 mmol/L (3.5-5.1); SODIUM 136 mmol/L (136-145); TCO2 24 mmol/L (25-35); TOTAL BILIRUBIN 0.19 mg/dL (0.20-1.00); TOTAL PROTEIN 5.5 g/dL (6.3-8.3)
[2019-05-05] MEDS ORDERED: DULCOLAX PR ONE (09:52)
[2019-05-05] MEDS: MS CONTIN PO SCH ×2 (09:56→22:27)
[2019-05-05] MEDS: FLEET MINERAL OIL ENEMA PR SCH ×2 (09:58→22:26)
[2019-05-05] MEDS: MYCOSTATIN SUSP PO SCH ×4 (09:58→22:26)
[2019-05-05] MEDS: MYLICON DROPS PO SCH ×2 (09:58→22:27)
[2019-05-05] MEDS: LACTULOSE PO SCH (10:48)
[2019-05-05] MEDS: MILK OF MAGNESIA PO SCH (10:48)
--- NOTE | 2019-05-05 12:54 | PROGRESS NOTE ---
DATE: 05/05/2019 SUBJECTIVE: The patient is resting in bed. His abdominal pain is better, but he is getting pain medication. Gastroenterology Department evaluated this patient. They have modified some of the medications. We will follow their recommendations. He has been placed on a full liquid diet. OBJECTIVE: Vital Signs: Temperature 97.9 degrees, pulse 85, respiratory rate 14, and blood pressure 96/77. Oxygen saturation 93 percent on room air. HEENT: Head normocephalic. No trauma. PERRLA. Neck: Supple. No JVD. No masses. Central trachea. Chest: Clear to auscultation with some crepitus at the bases. Abdomen: Soft. Distended. Tympanic to percussion. Bowel sounds decreased. He has discomfort to palpation which is generalized/pain. No signs of peritoneal irritation. Extremities: No edema. No clubbing. No cyanosis. Neurological: The patient is alert. He is oriented. He moves all 4 extremities. LABORATORY: WBC 10, hemoglobin 8, hematocrit 34.9, and platelets 307,000. Sodium 136, potassium 4.5, chloride 102, bicarbonate 24, BUN 14, creatinine 0.5, glucose 124, calcium 8.1, and albumin 2.0. ASSESSMENT AND PLAN: 1. Acute hypoxemic respiratory failure due to right lower lobe pneumonia with right pleural effusion. Continue with IV levofloxacin. Continue with same management. 2. Large volume ascites with recent paracentesis at [facility]. This has been followed by Hematology/Oncology Department now. Gastroenterology Department on board. CT of the abdomen showed omental thickening suspicious for metastasis. 3. Opioid induced constipation. We will continue following the recommendations of Gastroenterology Department. 4. Metastatic esophageal cancer diagnosed in 2018 with a renal metastasis and diffusely lymph node involvement followed by Hematology/Oncology Department. 5. Colonic ileus versus obstruction. Surgery and Gastroenterology on board. Gastroenterology evaluated this patient, and they have modified some of the medications and, also he has been placed on a liquid diet. cc: Lobito Pineda MD
--- NOTE | 2019-05-05 13:06 | GASTROENTEROLOGY CONSULTATION ---
DATE: 05/05/2019 REASON FOR CONSULTATION: Ileus versus stricture. HISTORY OF PRESENT ILLNESS: This is a 58-year-old, male who is known to our practice. He has been diagnosed with stage IV esophageal cancer. He has followed with Dr. Lechuga for chemotherapy. The patient had an initial EGD on 03/28/2019 with esophageal dilation. He then had a repeat EGD on 04/13/2019 with esophageal dilation and esophageal stent placed. Patient states he has been able to tolerate foods. Several days after the EGD, he started complaining of some constipation and states that he had went to the emergency room in [place] on several occasions. He then went to [facility] Emergency room. He was admitted he states for 3 days. He reports having a paracentesis. He was given multiple laxatives. He was discharged. The patient had progressive symptoms were he was not having bowel movements, abdominal swelling with nausea and abdominal pain. He came into the hospital for further evaluation. Abdominal pelvis CT scan on 05/01/2019 showed large volume ascites, omental thickening suspicious for malignant omental caking, at least moderate gaseous distention of the ascending and transverse colon, moderate sized right pleural effusion and right basilar atelectasis. Esophageal stent was in good position. Multiple basilar lung nodules, many of which were pleural base on the right, metastatic lesions could not be excluded. The patient had an abdominal x-ray today that showed colonic ileus versus stricture in the sigmoid colon and ascites, basilar atelectasis versus pneumonia, right pleural fluid collection versus pleural thickening. There was a considerable amount of gas and stool in the ascending and transverse colon, less gas and distention of the descending colon. Patient has been given enemas. He is currently ordered lactulose twice a day. Patient is still not having bowel movement. PAST MEDICAL HISTORY: 1. Stage IV esophageal cancer. 2. COPD. 3. Hepatitis B. 4. Questionable hepatitis B, hepatitis C. PAST SURGICAL HISTORY: 1. Wrist surgery. 2. Kidney stone surgery. 3. Esophageal stent placed on 04/13/[address] Cole. ALLERGIES: No known drug allergies. HOME MEDICATIONS: 1. Hydrocodone 10/325 every 4 to 6 hours as needed. 2. MS Contin 30 mg twice a day. 3. Phenergan 25 mg every 6 hours as needed. SOCIAL HISTORY: Smokes half a pack of cigarettes daily. He lives alone. No reported alcohol or drug use. REVIEW OF SYSTEMS: Per history of present illness. PHYSICAL EXAMINATION: Vital Signs: Temperature 97.9 degrees, pulse 96, respirations 16, blood pressure 102/77. General: Patient is awake in no acute distress. He is complaining of abdominal pain and distention. He has not had a bowel movement. HEENT: Normocephalic, atraumatic. Pupils equal, round, reactive to light. Cardiovascular: Regular rate and rhythm. Respiratory: Lung sounds clear. Chest: He has a port in place to the left upper chest. Abdomen: Distended. I did not currently hear any bowel sounds. If present, they are very hypoactive. LABORATORY DATA: Hematology: WBC 10.03, hemoglobin 8.0, hematocrit 24.9, MCV 94.3, platelet 307,000. Chemistry: Sodium 136, potassium 4.5, chloride 102, CO2 24, BUN 14, creatinine 0.5, glucose 124, calcium 8.1, total bilirubin 0.19, AST 19, ALT 11, alkaline phosphatase 81. ASSESSMENT AND PLAN: 1. Metastatic esophageal cancer. History of esophageal stent placed on 04/13/2019. 2. Drug induced constipation. Patient takes pain medication for his cancer diagnosis. 3. Colonic ileus versus stricture in the sigmoid colon, ascites. 4. We will discontinue lactulose and start milk of magnesia 30 mL daily. He has a Dulcolax suppository now. The patient has orders for enemas twice daily. Further plans to be made according to his progress. We had contemplated doing colonoscopy with decompression but when I evaluated the patient this morning at around 9:00, he had already eaten at least half of a regular tray, so we were not able to proceed with the procedure. We will see how he responds to medical management today. Further plans will be made according to response. I have discussed this case with Dr. Cole. Dictated by SUMMER Espinal for Patrick Cole MD cc: SUMMER Mitchell MD
[2019-05-05] MEDS: LEVAQUIN 750 MG/D5W 750 MG/150 ML IVPB IV SCH (14:29)
[2019-05-05] MEDS: ZOFRAN IV PRN (17:41)
[2019-05-05] MEDS: LOVENOX SUBQ SCH (22:27)
[2019-05-05] MEDS: MELATONIN PO SCH (22:27)
[2019-05-06] MEDS: DUONEB (A & A) INH SCH ×4 (03:18→21:43)
[2019-05-06] MEDS: DILAUDID IV PRN ×7 (04:01→23:10)
[2019-05-06 07:44] LABS: BASO# 0.02 X1000 (0.0-0.2); BASO% 0.3 % (0.0-0.8); EOS# 0.02 X1000 (0.0-0.7); EOS% 0.3 % (0.0-10.0); HEMATOCRIT 27.2 % (42.0-52.0); HEMOGLOBIN 8.5 g/dL (14.0-18.0); IMM GRAN# 0.02 X1000 (0.0-0.04); IMM GRAN% 0.3 % (0.0-0.5); LYMPH% 24.2 % (20.5-51.1); MCH 29.2 PG (27-31); MCHC 31.3 g/dL (33-37); MCV 93.5 FL (81-99); MONO# 0.79 X1000 (0.11-0.59); MONO% 10.1 % (1.7-9.3); MPV 9.1 FL (7.4-10.4); NEUT# 5.09 X1000 (1.4-6.5); NEUT% 64.8 % (42.2-75.2); PLT 286 X1000 (130-400); RBC 2.91 XMIL (4.7-6.1); RDW 15.8 % (11.5-14.5); WBC 7.84 X1000 (4.8-10.8)
[2019-05-06 08:06] LABS: AGAP 9; BUN 15 mg/dL (8-22); CALCIUM 8.1 mg/dL (8.8-10.2); CHLORIDE 101 mmol/L (98-107); COSMO 273; CREATININE 0.5 mg/dL (0.7-1.2); ESTIMATED GFR > 60; GLUCOSE 108 mg/dL (70-104); POTASSIUM 4.4 mmol/L (3.5-5.1); SODIUM 136 mmol/L (136-145); TCO2 26 mmol/L (25-35)
[2019-05-06] MEDS: FLEET MINERAL OIL ENEMA PR SCH ×2 (09:45→20:06)
[2019-05-06] MEDS: MS CONTIN PO SCH ×2 (09:45→20:09)
[2019-05-06] MEDS: MYCOSTATIN SUSP PO SCH ×4 (09:45→20:07)
[2019-05-06] MEDS: MILK OF MAGNESIA PO SCH (09:45)
[2019-05-06] MEDS: MYLICON DROPS PO SCH ×2 (09:46→20:06)
--- NOTE | 2019-05-06 10:17 | GASTROENTEROLOGY PROGRESS NOTE ---
DATE: 05/06/2019 Mr. Estrada is sitting up and enjoying his breakfast. He reports some abdominal distention; however, he has been passing flatus. Has had small bowel movements. But continues to have some abdominal discomfort mostly on the flanks in the upper part of the abdomen the flank area. He has not noticed any blood or mucus in his stool. He tells me that he has been able to keep food down and has been able to swallow. PHYSICAL EXAMINATION: Vital Signs: Temperature 99 degree Fahrenheit, pulse 79 per minute, breathing at 15, blood pressure 94/76. Abdomen: Distended, soft, nontender. Bowel sounds are audible. LABORATORIES: Reviewed. Sodium 136, potassium 4.4, chloride 101, bicarb 26, BUN is 15, creatinine 0.5. IMPRESSION: Metastatic esophageal CA with peritoneal mets and malignant ascites. He has developed most likely stenosis in the distal colon causing GI issues now. Causing constipation and inability to have good bowel movements now. His constipation is further complicated by pain medication that he takes for his aches and pains because of the cancer. Lactulose was causing him to develop gaseous distention of his colon as well. We have switched his lactulose to milk of magnesia 30 mL every day and see how he responds to that. Encouraged him to continue pain medicine because he needs that, unfortunately has stage IV esophageal CA. I would continue to observe him. If needed may need colonic decompression but again that will be a risky procedure because of inability to prep him. It may cause poor visualization of his colon to advance the scope and he has high risk for perforation. As long as we can avoid and get the benefit from medication current treatment, we will continue. Unfortunately he has a poor prognosis and palliative measures may be all that we can offer. I explained my plan to him and he understands and wants to continue to take milk of mag and see how he responds. cc: Patrick Cole MD
--- NOTE | 2019-05-06 12:39 | Diag Imaging Result Doc PS360 ---
EXAM: KUB ABDOMEN 05/06/2019 HISTORY: abdominal distention TECHNIQUE: KUB COMMENT: There continues to be a considerable retained stool throughout the colon, with the exception of the descending colon. Compared to 05/05/2019 there is somewhat more gas and stool in the ascending colon. Otherwise are has been no significant change. IMPRESSION: Constipation. The possibility of colonic ileus cannot be excluded. Electronically signed by Edwin Cuevas 05/06/2019 12:36 PM
--- NOTE | 2019-05-06 13:21 | PROGRESS NOTE ---
DATE: 05/06/2019 SUBJECTIVE: This patient feels a little bit better compared with yesterday. He is still complaining of abdominal pain, but he is getting pain medication. He had a bowel movement today, it was not large, and he has been passing gas today. His abdomen is still distended, though. I will continue with same management because it looks like it is working for him. I will continue with a liquid diet as well. OBJECTIVE: Vital Signs: Temperature 97.7 degrees, pulse 92, respiratory rate 16, blood pressure 107/77, oxygen saturation 97% on room air. HEENT: Head normocephalic, no trauma. PERRLA. Neck: Supple. No JVD. No masses. Central trachea. Chest: Clear to auscultation with some crepitus at the bases. Abdomen: Soft, distended, tympanic to percussion. Bowel sounds decreased. He has discomfort to palpation which is generalized/he has pain. No signs of peritoneal irritation. Extremities: No edema, no clubbing, no cyanosis. Neurological examination: The patient is alert. He is oriented. He moves all 4 extremities. He has generalized weakness. LABORATORY: WBC 7.8, hemoglobin 8.5, hematocrit 27.2, platelets 286. Sodium 136, potassium 4.4, chloride 101, bicarbonate 26. BUN 15, creatinine 0.5, glucose 108, calcium 8.1. ASSESSMENT AND PLAN: 1. Acute hypoxemic respiratory failure due to right lower lobe pneumonia with right pleural effusion, continue with intravenous levofloxacin. I think he is getting better from this regard, 2. Large volume ascites with recent paracentesis at [facility]. He has been followed by Hematology/Oncology Department now. Gastroenterology Department on board as well. CT scan of the abdomen showed omental thickening suspicious for metastasis. 3. Metastatic esophageal cancer diagnosed in 2018 with renal metastasis and diffuse lymph node involvement, now probably also around his bowel. Hematology/Oncology Department on board. 4. Colonic ileus versus obstruction. He had a bowel movement today, but it was not enough. He passed a little bit of gas today, but he is still distended. We will continue with the same management as recommended by Gastroenterology Department. His prognosis is poor due to his cancer and multiple comorbidities. He has been losing weight and he is cachectic. We will just continue with the same management. We will try to keep this patient comfortable. cc: Lobito Pineda MD
--- NOTE | 2019-05-06 13:48 | GENERAL SURGERY PROGRESS NOTE ---
DATE: 05/06/2019 SUBJECTIVE: Mr. Farrell said he feels better. Said his bowels have moved a couple times last night and this morning. Temperature is 99 degrees heart rate 79, blood pressure 94/76. His abdomen is soft, tympanitic, but nontender. I suspect he will continue to have trouble with abdominal distention in view of his opioid use. Repeat his KUB today to look to see what the extent of his colon distention is. cc: Livan Li MD
[2019-05-06] MEDS: LEVAQUIN 750 MG/D5W 750 MG/150 ML IVPB IV SCH (15:29)
[2019-05-06] MEDS: LOVENOX SUBQ SCH (20:07)
[2019-05-06] MEDS: MELATONIN PO SCH (20:07)
[2019-05-07] MEDS: DILAUDID IV PRN ×7 (02:12→23:56)
[2019-05-07] MEDS: DUONEB (A & A) INH SCH ×4 (04:00→21:40)
[2019-05-07] MEDS: MILK OF MAGNESIA PO SCH (08:01)
[2019-05-07] MEDS: MS CONTIN PO SCH ×2 (08:02→20:07)
[2019-05-07] MEDS: MYLICON DROPS PO SCH ×2 (08:02→20:08)
[2019-05-07] MEDS: FLEET MINERAL OIL ENEMA PR SCH (08:02)
[2019-05-07] MEDS: MYCOSTATIN SUSP PO SCH ×4 (08:02→20:08)
--- NOTE | 2019-05-07 09:31 | GENERAL SURGERY PROGRESS NOTE ---
DATE: 05/07/2019 Mr. Estrada had some small bowel movements yesterday. His x-ray shows some moderately dilated colon, not dangerously so. Stool is apparent in the colon. I will recommend some MiraLAX in addition to his cathartics that he is on already. cc: Livan Li MD
[2019-05-07] MEDS ORDERED: MIRALAX PO ONE (11:10)
--- NOTE | 2019-05-07 11:30 | PROGRESS NOTE ---
DATE: 05/07/2019 SUBJECTIVE: No big changes compared with yesterday. His abdomen is still distended. His pain is controlled, no bowel movement, and he is not passing gas. We will continue with the same management. MiraLAX has been added to his medications. OBJECTIVE: Vital Signs: Temperature 98.1, pulse 79, respiratory rate 16 blood pressure 102/69, oxygen saturation 97% on room air. HEENT: Head normocephalic, no trauma. PERRLA. Neck: Supple. No JVD. No masses. Central trachea. Chest: Clear to auscultation. Some crepitus at the bases. Abdomen: Soft. Distended, tympanic to percussion. Bowel sounds decreased. He has discomfort to palpation which is generalized. No signs of peritoneal irritation. Extremities: No edema, no clubbing, no cyanosis. Neurologic: This patient is alert. He is oriented. He moves all 4 extremities. He has generalized weakness. LABORATORY: WBC 7.8, hemoglobin 8.5, hematocrit 27.2, platelets 286,000. Sodium 136, potassium 4.4, chloride 101, bicarbonate 26, BUN 15, creatinine 0.5, glucose 108, calcium 8.1. ASSESSMENT AND PLAN: 1. Acute hypoxemic respiratory failure due to right lower lobe pneumonia with right pleural effusion. Continue with IV levofloxacin. This is getting better. 2. Large volume ascites with recent paracentesis at [facility]. He has been followed by Hematology/Oncology Department now, Gastroenterology Department on board as well as Surgery Department. CT of the abdomen showed omental thickening suspicious for metastasis. 3. Metastatic esophageal cancer diagnosed in 2018 with adrenal involvement and diffuse lymph node involvement and probably now on his bowel. Hematology/Oncology on board. 4. Colonic ileus versus obstruction. He had a small bowel movement yesterday, and he passed some gas yesterday as well, but not today. We will continue with same management. MiraLAX has been added to enemas and treatment recommended by Gastroenterology. Prognosis is poor due to his cancer and multiple comorbidities. He also has been losing weight. He looks cachectic. We will continue with the same management. We will try to keep this patient comfortable. I had a large conversation with the family yesterday about this patient, and they seemed to understand. cc: Lobito Pineda MD
--- NOTE | 2019-05-07 12:44 | GASTROENTEROLOGY PROGRESS NOTE ---
DATE: 05/07/2019 SUBJECTIVE: Patient states he had a small bowel movement yesterday. He states he did pass some gas yesterday. OBJECTIVE: Vital Signs: Temperature 98.1 degrees, pulse 79, respirations 16, blood pressure 102/69. General: Patient is awake, alert, in no acute distress. Abdomen: Distended, soft, with decreased bowel sounds. LABORATORY: Hematology: WBC 7.84, hemoglobin 8.5, hematocrit 27.2, MCV 93.5, platelet 286,000. Chemistry: Sodium 136, potassium 4.4, chloride 101, CO2 26, BUN 15, creatinine 0.5, glucose 108, calcium 8.1. ASSESSMENT AND PLAN: 1. Metastatic esophageal cancer. 2. Colonic ileus. Continue laxative but we will hold off the enemas and add MiraLAX to his milk of magnesia daily. Further plans to be made according to his response. We will continue to follow. I have discussed this case with Dr. Cole. Dictated by SUMMER Espinal for Patrick Cole MD cc: SUMMER Mitchell MD
[2019-05-07] MEDS: LEVAQUIN 750 MG/D5W 750 MG/150 ML IVPB IV SCH (15:05)
[2019-05-07] MEDS: MELATONIN PO SCH (20:08)
[2019-05-07] MEDS: LOVENOX SUBQ SCH (20:13)
[2019-05-08] MEDS: ZOFRAN IV PRN (02:53)
[2019-05-08] MEDS: DILAUDID IV PRN ×4 (02:53→11:58)
[2019-05-08] MEDS: DUONEB (A & A) INH SCH ×3 (03:37→16:58)
--- NOTE | 2019-05-08 07:52 | GENERAL SURGERY PROGRESS NOTE ---
DATE: 05/08/2019 SUBJECTIVE: The patient seems to feel uncomfortable and feels bloated. OBJECTIVE: Vital Signs: The patient is currently afebrile. His vital signs are stable. General: No acute distress, but appears cachectic and uncomfortable, male, looks stated age. HEENT: Normocephalic, atraumatic. Pupils equal, round, reactive to light. Mucous membranes moist. Oropharynx benign. Neck: Supple. Trachea midline. Cardiovascular: Regular rate and rhythm. Lungs: Grossly clear. Abdomen: Soft, distended. Extremities: Moves all extremities. Neurologic: Grossly intact. Skin: No signs of jaundice. Vascular: All extremities perfused. IMAGING AND LABORATORY DATA: None this morning as of yet. Abdominal film pending. ASSESSMENT AND PLAN: A 58-year-old with stage IV esophageal cancer, now with bowel obstruction. Colonic ileus versus bowel obstruction. At this time, will continue current treatment. We need to try to stimulate him. It looks like more of a constipation issue on films, but would repeat films this morning. Dr. Cole has been consulted, and will defer to them. He is high risk for any kind of surgical intervention. We would like to try to manage him nonoperatively. cc: Josh Oh MD
--- NOTE | 2019-05-08 07:52 | Diag Imaging Result Doc PS360 ---
EXAM: ABDOMEN FLAT/UPRIGHT HISTORY: bowel obstruction TECHNIQUE: Flat and upright, two views COMPARISON: 05/06/2019 FINDINGS: Prominent stool throughout the colon. No organomegaly. Left upper quadrant stent. No abnormal abdominal calcifications. IMPRESSION: Persistent constipation. Electronically signed by Madan Poe 05/08/2019 6:25 AM
[2019-05-08 07:58] LABS: AGAP 9; BUN 12 mg/dL (8-22); CALCIUM 7.8 mg/dL (8.8-10.2); CHLORIDE 96 mmol/L (98-107); COSMO 269; CREATININE 0.5 mg/dL (0.7-1.2); ESTIMATED GFR > 60; GLUCOSE 154 mg/dL (70-104); POTASSIUM 4.2 mmol/L (3.5-5.1); SODIUM 133 mmol/L (136-145); TCO2 28 mmol/L (25-35)
[2019-05-08] MEDS ORDERED: MIRALAX PO SCH (09:00)
[2019-05-08] MEDS: MYCOSTATIN SUSP PO SCH ×3 (09:08→17:01)
[2019-05-08] MEDS: MS CONTIN PO SCH (09:08)
[2019-05-08] MEDS: MILK OF MAGNESIA PO SCH (09:08)
[2019-05-08] MEDS: MYLICON DROPS PO SCH (11:41)
--- NOTE | 2019-05-08 14:25 | PROGRESS NOTE ---
DATE: 05/08/2019 SUBJECTIVE: No big changes compared with yesterday. His abdomen is still distended. He is still having problem passing gas and having bowel movements. Palliative care on board. This patient has decided to go home with hospice. OBJECTIVE: Vital Signs: Temperature 97.6 degrees, pulse 95, respiratory rate 16, blood pressure 100/71, oxygen saturation 99 on room air. HEENT: Head normocephalic, no trauma, PERRLA. Neck: Supple. No JVD. No masses. Central trachea. Chest: Clear to auscultation. Some crepitus at the bases. Abdomen: Soft distended, tympanic to percussion. Bowel sounds decreased. He has discomfort to palpation which is generalized. No signs of peritoneal irritation. Extremities: No edema no clubbing no cyanosis. Neurological: The patient is alert. He is oriented. He moves all 4 extremities. He has generalized weakness. LABORATORY: Sodium 133, potassium 4.2, chloride 96, bicarbonate 28, BUN 12, creatinine 0.5, glucose 154, calcium 7.8. ASSESSMENT AND PLAN: 1. Acute hypoxemic respiratory failure due to right lower lobe pneumonia with right with right- sided pleural effusion, continue with I believe levofloxacin. This is getting better. 2. Large volume ascites with recent paracentesis at [facility]. This has been followed by Hematology/Oncology Department and also GI department, likely this is malignant ascites, CT of the abdomen showed omental thickening suspicious for metastasis. 3. Metastatic esophageal cancer diagnosed in 2018 with adrenal involvement and diffuse lymph node involvement and probably now on his bowel, aware. This patient has decided to go home as soon as we can with hospice, we are working on that. 4. Colonic ileus versus obstruction. He had a small bowel movement yesterday 2 days ago and he passed some gas also at that time. He thinks that he passed a little bit today but not sure. Will continue with same management. 5. Prognosis is poor due to his cancer and multiple comorbidities. He has decided to go home with hospice. We are working on that. cc: Lobito Pineda MD
[2019-05-08] MEDS ORDERED: DILAUDID IV PRN (14:40)
[2019-05-08 14:52] VITALS: BP 106/87
--- NOTE | 2019-05-08 15:49 | GASTROENTEROLOGY PROGRESS NOTE ---
DATE: 05/08/2019 SUBJECTIVE: The patient is lying in bed. He is still complaining of not going to the bathroom well. He has had multiple laxatives. The patient's sister is at the bedside. The patient would like to speak with Dr. Lechuga on his recommendations for further treatment and patient is contemplating wanting to go home on hospice. I believe he has been seen by case management social worker. OBJECTIVE: Vital Signs: Temperature 97.6 degrees, pulse 95, respirations 16, blood pressure 100/71. General: Patient is awake and alert in no acute distress. Abdomen: Distended and soft. LABORATORY DATA: Chemistry: Sodium 133, potassium 4.2, chloride 96, CO2 28, BUN 12, creatinine 0.5, glucose 154. ASSESSMENT AND PLAN: 1. Metastatic esophageal cancer. 2. Ileus versus obstruction. Continue bowel laxative regimen. Unfortunately, there is not much per GI perspective that can be added. We would recommend conversation with Dr. Lechuga on plan for further treatment or, if needed, he may be a candidate for hospice. The patient wants to discuss with Dr. Lechuga. Dr. Cole has spoken with Dr. Tim and I have also spoken with Almita Soriano, nurse practitioner for Dr. Lechuga. GI will continue to follow and be available as needed. Dictated by SUMMER Espinal for Patrick Cole MD cc: SUMMER Mitchell MD
[2019-05-08] MEDS: LEVAQUIN 750 MG/D5W 750 MG/150 ML IVPB IV SCH (17:01)
--- NOTE | 2019-05-08 17:25 | DISCHARGE SUMMARY ---
ADMISSION DATE: 05/01/2019 DISCHARGE DATE: 05/08/2019 DISCHARGE DIAGNOSES: 1. Acute hypoxemic respiratory failure due to right lower lobe pneumonia and right-sided pleural effusion, already completed treatment with levofloxacin. 2. Large volume ascites with recent paracentesis at [facility], likely malignant ascites. 3. Metastatic esophageal cancer. 4. Colonic ileus versus obstruction. 5. Cachexia/severe protein calorie malnutrition. PROCEDURES PERFORMED: 1. Abdomen and pelvis CT scan dated 05/01/2019, impression: Large volume ascites, omental thickening that is suspicion for malignant omental caking, moderate gaseous distention of the ascending and transverse colon, moderate right-sided pleural effusion with right basilar atelectasis, superimposed pneumonia at the right lung base is not excluded, esophageal stent, multiple bibasilar lung nodules bilaterally, many of which are pleural based on the right, metastatic lesions cannot be excluded. 2. Abdomen x-ray dated 05/04/2019, impression: Colonic ileus versus partial distal colonic obstruction. 3. Abdominal x-ray dated 05/05/2018, impression: Colonic ileus versus stricture in the sigmoid colon, ascites, bibasilar atelectasis versus pneumonia, right pleural collection versus pleural thickening. 4. Abdominal x-ray dated 05/06/2019, impression: Constipation, possibility of colonic ileus. 5. Abdominal x-ray dated 05/06/2019, impression: Persistent constipation. HOSPITAL COURSE: This is a 58-year-old male with a medical history of stage IV esophageal cancer, status post a stent 3 weeks ago, hepatitis C, COPD, presented to the emergency department with 3-day history of worsening abdominal swelling and pain. He was admitted on 05/01/2019. Also, he states that 2 to 3 weeks before admission, he had an esophageal stent placed by one of the gastroenterologists due to dysphagia secondary to progressive esophageal disease. After the procedure, he was able to eat semi-solid foods with no problems. However, about a week after the procedure, he started noticing increasing abdominal distention with upper abdominal pain. He feels bloated and stretched out as well. He went to [facility]. He spent 3 days there. They did a paracenteses for him and tried to induce a bowel movement without much success and they sent him home. He was advised to return to the nearest ER if the pain worsened or the swelling recurred, so he came to the emergency department with progressively worsening accelerated abdominal swelling and nausea and epigastric pain in the upper half of the abdomen, easy satiety, occasional chills, no vomiting, shortness of breath. He was admitted to the medical floor. We did a CT scan of the abdomen and pelvis that showed omental thickening that is suspicious for malignancy, gaseous distention of the ascending and transverse colon, no obstruction, moderate- sized right pleural effusion with possible pneumonia, bibasilar lung nodules that could be metastatic lesions, and large volume ascites which likely is malignant ascites as well. Because of the swelling and pain, we also asked for an abdominal x-ray that showed ileus versus distal colon obstruction. Surgery Department and Gastroenterology Department evaluated this patient and they both state that likely this is due to malignancy. So, we tried to help the patient to have bowel movements with stool softener, suppositories and, also enemas. Also Hematology/Oncology Department has been on board. Given his current presentation, we considered a palliative care evaluation for this patient and today this patient decided to go home with hospice. PHYSICAL EXAMINATION: Vital signs: Temperature 98.2 degrees, pulse 107, respiratory rate 18, blood pressure 106/87, oxygen saturation 100% on room air. HEENT: Head normocephalic. No trauma. PERRLA. Neck: Supple. No JVD. No masses. Central trachea. Chest: Clear to auscultation. Some crepitus at the bases. Abdomen: Soft, distended, tympanic to percussion. Bowel sounds present. He has discomfort to palpation which is generalized. No signs of peritoneal irritation. The bowel sounds are present but decreased. Extremities: No edema. No clubbing. No cyanosis. Neurologic: This patient is completely alert and oriented x3. No focal deficits but generalized weakness. LABORATORY: Today sodium 133, potassium 4.2, chloride 96, bicarbonate 28, BUN 12, creatinine 0.5, glucose 154, calcium 7.8. DISCHARGE MEDICATIONS: Dulcolax 10 mg suppository rectally as needed for constipation, Dilaudid 2 mg p.o. q.3 hours as needed for pain, milk of magnesia 30 mL p.o. daily, melatonin 3 mg p.o. at bedtime, morphine ER/MS Contin 30 mg p.o. b.i.d., MiraLAX 17 g p.o. daily, Phenergan 25 mg p.o. q.6 hours as needed for nausea and vomiting, simethicone 80 mg p.o. b.i.d. This patient has been discharged home with hospice, family at the bedside. cc: Lobito Pineda MD
== END 2019-05-08 17:04 | disposition hospice, home (50) | DRG 374 ==
LOC: SUPCPDRO → ED 15:37 → SUATTDRO 20:28 → 3N 20:28
PROVIDERS: ATTEND Internal Medicine
CPT/HCPCS: 74000; 74018; 74019; 74020; 74176; 80048; 80053; 81001; 82150; 83690; 83880; 85025; 87449; 87899; 94640; 94761; 96374; 96376; 97161; 97165; 97535; 99285; A9270; J1170; J1650; J1956; J2405; S0028